=== PATIENT | male | born 1975 | race American Indian/Alaskan Native ===

== ENCOUNTER 2017-03-20 05:24 | Emergency (ER) | payer SELFPAY ==
[2017-03-20 05:42] VITALS: BP 147/92; PULSE 59; RESP 16; TEMP 97.8; O2SAT 98
--- NOTE | 2017-03-20 06:01 | C.PDOC ---
History Of Present Illness 42 y/o male presents to ER with c/o of swelling to Left ankle x 1 week. Denies trauma, pain, numbness, calf pain. Pt also reports intermittent blurry vision and is requesting testing for diabetes. Patient denies shortness of breath. Time Seen by Provider: 03/20/17 05:43 Chief Complaint (Nursing): Medical Clearance History Per: Patient History/Exam Limitations: no limitations Onset/Duration Of Symptoms: Days Current Symptoms Are (Timing): Still Present Recent travel outside of the [place]: No Past Medical History Reviewed: Historical Data, Nursing Documentation, Vital Signs Vital Signs: Last Vital Signs Temp 97.8 F 03/20/17 05:36 Pulse 59 L 03/20/17 05:36 Resp 16 03/20/17 05:36 BP 147/92 H 03/20/17 05:36 Pulse Ox 98 03/21/17 00:51 - Medical History PMH: HTN Family History: States: Unknown Family Hx - Social History Hx Alcohol Use: Yes Hx Substance Use: No - Immunization History Hx Tetanus Toxoid Vaccination: No Hx Influenza Vaccination: No Hx Pneumococcal Vaccination: No Review Of Systems Except As Marked, All Systems Reviewed And Found Negative. Constitutional: Negative for: Fever, Chills Eyes: Positive for: Other (blurry vision) Cardiovascular: Negative for: Chest Pain, Palpitations Respiratory: Negative for: Cough, Shortness of Breath, Wheezing Gastrointestinal: Negative for: Nausea, Vomiting Musculoskeletal: Positive for: Other (left ankle swelling) Skin: Negative for: Rash Neurological: Negative for: Weakness, Numbness Physical Exam - Physical Exam Appears: Non-toxic, No Acute Distress Skin: Warm, Dry Head: Atraumatic, Normacephalic Eye(s): bilateral: Normal Inspection, PERRL Neck: Normal, Supple Chest: Symmetrical Cardiovascular: Rhythm Regular Respiratory: Normal Breath Sounds, No Rales, No Rhonchi, No Wheezing Gastrointestinal/Abdominal: Soft, No Tenderness, Other (obese ) Back: Normal Inspection Extremity: No Tenderness, Capillary Refill (< 2 sec.), No Deformity, Swelling ( left ankle) Extremity: Bilateral: Normal Color And Temperature Pulses: Left Dorsalis Pedis: Normal, Right Dorsalis Pedis: Normal Neurological/Psych: Oriented x3, Normal Speech, Normal Cognition ED Course And Treatment O2 Sat by Pulse Oximetry: 98 (RA) Pulse Ox Interpretation: Normal Progress Note: On reassessment, patient is comfortable, and is in no acute distress. Patient instructed to elevate the leg and to follow up at the clinic within 1-2 days. Disposition Counseled Patient/Family Regarding: Diagnosis, Need For Followup - Disposition Referrals: [facility] [Outside] Disposition: HOME/ ROUTINE Disposition Time: 05:59 Condition: STABLE Additional Instructions: Please elevate leg Follow up in clinic tylenol or advil if pain Return to ER if worse Instructions: Leg Edema (ED) - Clinical Impression Clinical Impression: Leg edema, left - PA / ACUTE DIALYSIS REGISTERED NURSE / Resident Statement MD/DO has reviewed & agrees with the documentation as recorded. - Scribe Statement The provider has reviewed the documentation as recorded by the Rayibmelina Baron All medical record entries made by the Jun were at my direction and personally dictated by me. I have reviewed the chart and agree that the record accurately reflects my personal performance of the history, physical exam, medical decision making, and the department course for this patient. I have also personally directed, reviewed, and agree with the discharge instructions and disposition.
== END 2017-03-20 06:14 | disposition home or self-care (01) ==
LOC: C.ER 05:24
DX: R60.0 Localized edema (principal)